=== PATIENT | female | born 1960 | race Caucasian/White ===

== ENCOUNTER 2020-07-13 13:22 | Inpatient (IN) | payer OTHER ==
[~2020-07-13 13:22] MED LIST: 8 HOUR650 MG PO; ASPIR 8181 MG PO; AZITHROMYCIN250 MG PO; BACTRIM DS TAB1 EACH PO; BENTYL10 MG PO; CLONAZEPAM0.5 MG PO; ESTRACE1 MG PO; FLEXERIL10 MG PO; IBUPROFEN800 MG PO; LEVOTHYROXINE PO; LODINE400 MG PO; MEDROL 4MG DOSEP4 MG PO; METRONIDAZOLE500 MG PO; NORCO 5-325 TA1 EACH PO; PREDNISONE 20MG20 MG PO; PRILOSEC20 MG PO; SYNTHROID125 MCG PO; VENTOLIN HFA IN18 GM INH
[2020-07-13 14:36] LABS: BASOPHIL 0.6 % (0-2); EOSINOPHIL 3.9 % (0-5); HCT 35.3 % (37.0-47.0); HGB 11.9 g/dl (12.5-16.0); LYMPHOCYTE 22.9 % (15-48); MCH 30.2 pg (25.0-31.0); MCHC 33.7 g/dL (32.0-36.0); MCV 89.6 fL (78.0-100.0); MONOCYTE 6.3 % (0-12); MPV 9.7 fL (6.0-9.5); NEUTROPHIL 65.9 % (41-80); NRBC 0; PLT 246 K/uL (150-400); RBC 3.94 M/uL (4.20-5.40); RDW 12.5 % (11.5-14.0); WBC 9.8 K/uL (4.0-10.5)
[2020-07-13 14:44] LABS: BILIRUBIN NEGATIVE (NEGATIVE); BLOOD NEGATIVE Ery/uL (NEGATIVE); CLARITY CLEAR (CLEAR); COLOR YELLOW (YELLOW); GLUCOSE (U) NORMAL (NORMAL); LEUKOCYTES NEGATIVE Leu/uL (NEGATIVE); NITRITE NEGATIVE (NEGATIVE); PROTEIN NEGATIVE (NEGATIVE); SPECIFIC GRAVITY <=1.005 (1.001-1.030); UROBILINOGEN 0.2 mg/dL (0.2-1.0); pH 5.5 (5.0-9.0)
[2020-07-13 14:44] LABS: ECSTASY (MDMA) NEGATIVE (NEGATIVE); MARIJUANA (THC) NEGATIVE (NEGATIVE); METHADONE NEGATIVE (NEGATIVE)
[2020-07-13 14:45] LABS: AMPHETAMINES NEGATIVE (NEGATIVE); BARBITURATES NEGATIVE (NEGATIVE); OPIATES NEGATIVE (NEGATIVE); OXYCODONE NEGATIVE (NEGATIVE)
[2020-07-13 15:01] LABS: ALKALINE PHOSHATASE 71 U/L (46-116); ALT 26 U/L (14-59); AST 19 U/L (15-37); BILIRUBIN - TOTAL 0.4 mg/dL (0.2-1.0); BUN 32 mg/dL (7-18); BUN/CREAT RATIO (CALC) 20.9 RATIO; CHLORIDE 105 mmol/L (98-107); CO2 (BICARBONATE) 26 mmol/L (21-32); CPK 122 U/L (26-192); CREATININE 1.53 mg/dL (0.51-0.95); GLOBULIN (CALCULATION) 3.3 g/dL; GLUCOSE 91 mg/dL (74-106); TOTAL PROTEIN 7.3 g/dL (6.4-8.2)
[2020-07-13 15:12] LABS: POTASSIUM 7.7 mmol/L (3.5-5.1)
[2020-07-13 15:29] LABS: MAGNESIUM 1.8 mg/dL (1.8-2.4); PHOSPHORUS 3.7 mg/dL (2.6-4.7)
[2020-07-13] MEDS ORDERED: MOBIC7.5 MG PO (18:03)
[2020-07-13] MEDS ORDERED: LAMICTAL100 MG PO (18:03)
[2020-07-13] MEDS ORDERED: LISINOPRIL5 MG PO (18:04)
[2020-07-13] MEDS ORDERED: SINEQUAN50 MG PO (18:06)
[2020-07-13] MEDS ORDERED: BUSPIRONE HCL15 MG PO (18:06)
[2020-07-13] MEDS ORDERED: METFORMIN HCL500 MG PO (18:07)
[2020-07-13] MEDS ORDERED: CRESTOR10 M1 PO (18:09)
[2020-07-13] MEDS ORDERED: INDERAL20 MG PO (18:10)
[2020-07-13] MEDS ORDERED: CLARITIN10 MG PO (18:10)
[2020-07-13] MEDS ORDERED: PRAZOSIN HCL2 MG PO (18:12)
[2020-07-13] MEDS ORDERED: 24HR ALLERGY REL5 MG PO (18:13)
[2020-07-13] MEDS ORDERED: OMEPRAZOLE 20MG20 MG PO (18:14)
[2020-07-13 18:48] LABS: BUN/CREAT RATIO (CALC) 21.3 RATIO; CREATININE 1.36 mg/dL (0.51-0.95)
[2020-07-13 18:50] LABS: POTASSIUM 5.2 mmol/L (3.5-5.1)
[2020-07-14 05:51] LABS: BASOPHIL 0.8 % (0-2); EOSINOPHIL 4.4 % (0-5); HGB 11.7 g/dl (12.5-16.0); LYMPHOCYTE 25.5 % (15-48); MCH 30.3 pg (25.0-31.0); MCHC 33.4 g/dL (32.0-36.0); MCV 90.7 fL (78.0-100.0); MPV 10.9 fL (6.0-9.5); NEUTROPHIL 62.9 % (41-80); NRBC 0; PLT 216 K/uL (150-400); RBC 3.86 M/uL (4.20-5.40); RDW 12.9 % (11.5-14.0); WBC 9.6 K/uL (4.0-10.5)
[2020-07-14 06:14] LABS: BUN/CREAT RATIO (CALC) 18.8 RATIO; CREATININE 1.12 mg/dL (0.51-0.95)
[2020-07-14 06:31] LABS: POTASSIUM 6.3 mmol/L (3.5-5.1)
[2020-07-14 13:30] LABS: BILIRUBIN NEGATIVE (NEGATIVE); BLOOD NEGATIVE Ery/uL (NEGATIVE); CLARITY CLEAR (CLEAR); COLOR YELLOW (YELLOW); GLUCOSE (U) NORMAL (NORMAL); LEUKOCYTES NEGATIVE Leu/uL (NEGATIVE); NITRITE NEGATIVE (NEGATIVE); PROTEIN NEGATIVE (NEGATIVE); SPECIFIC GRAVITY 1.015 (1.001-1.030); UROBILINOGEN 0.2 mg/dL (0.2-1.0)
[2020-07-14 13:39] LABS: BACTERIA TRACE; MUCOUS TRACE; URINARY RBC RARE
[2020-07-14 13:54] LABS: URINE CREATININE 73.52 mg/dL (29.00-226.00)
[2020-07-14 14:46] LABS: BUN/CREAT RATIO (CALC) 16.4 RATIO; CREATININE 1.1 mg/dL (0.51-0.95); POTASSIUM 5.3 mmol/L (3.5-5.1)
--- NOTE | 2020-07-14 15:44 | NUR ---
07/14/20 Ms. Walker lives with her spouse. She is independent in the home and community. No discharge planning needs are anticipated.
[2020-07-15 06:24] LABS: BUN/CREAT RATIO (CALC) 13.4 RATIO; CREATININE 1.19 mg/dL (0.51-0.95); POTASSIUM 4.4 mmol/L (3.5-5.1)
--- NOTE | 2020-07-15 14:39 | NUR ---
DC'D MONITOR, DC'D IV, EXPLAINED DISCHARGE INSTRUCTIONS. PT VOICED UNDERSTANDING. ALL QUESTIONS ANSWERED. WHEELED PATIENT TO PATIENT PICKUP.
== END 2020-07-15 14:30 | disposition home or self-care (01) | DRG 640 ==
LOC: FER 13:22 → FTCU 16:35
PROVIDERS: Internal Medicine; Internal Medicine Nephrology; Nurse Practitioner Family; ADMIT Internal Medicine
DX: E87.5 Hyperkalemia (principal); N17.0 Acute kidney failure with tubular necrosis; I10 Essential (primary) hypertension; F41.9 Anxiety disorder, unspecified; I25.10 Atherosclerotic heart disease of native coronary artery without angina pectoris; E03.9 Hypothyroidism, unspecified; E78.5 Hyperlipidemia, unspecified; I95.1 Orthostatic hypotension; Z20.822 Contact with and (suspected) exposure to COVID-19; G47.00 Insomnia, unspecified; T39.395A Adverse effect of other nonsteroidal anti-inflammatory drugs [NSAID], initial encounter; T46.4X5A Adverse effect of angiotensin-converting-enzyme inhibitors, initial encounter; E86.9 Volume depletion, unspecified; Z90.710 Acquired absence of both cervix and uterus; Z95.5 Presence of coronary angioplasty implant and graft; Z88.7 Allergy status to serum and vaccine; Z90.49 Acquired absence of other specified parts of digestive tract; Z98.890 Other specified postprocedural states; Z87.891 Personal history of nicotine dependence; Z79.82 Long term (current) use of aspirin; Z79.84 Long term (current) use of oral hypoglycemic drugs; Z79.899 Other long term (current) drug therapy
CPT/HCPCS: 36415; 70450; 80048; 80053; 80305; 81001; 81003; 82550; 82570; 83735; 84100; 84133; 84300; 85025; 93005; G0480; J1940; J7030; U0002